=== PATIENT | female | born 2000 | race African-American/Black ===

== ENCOUNTER → 2024-05-11 06:58 | Outpatient (REF) | payer OTHER, SELFPAY | LOC: HWRAD 06:58 | PROVIDERS: ATTENDING PHYSICIAN Internal Medicine | DX: N91.2 Amenorrhea, unspecified (principal) | CPT/HCPCS: 76700 ==

== ENCOUNTER → 2024-06-21 10:34 | Outpatient (REF) | payer OTHER, SELFPAY | LOC: HWRAD 10:34 | PROVIDERS: ATTENDING PHYSICIAN Internal Medicine | DX: N91.2 Amenorrhea, unspecified (principal) | CPT/HCPCS: 76856 ==